=== PATIENT | male | born 1975 ===

== ENCOUNTER 2018-12-03 16:38 | Emergency (ER) | payer SELFPAY ==
--- OUTSIDE RECORDS SUMMARY | 2018-12-03 16:41 | XMS REPORT ---
Author Author [facility] Address Unknown Phone Unavailable Care Team Providers Care Disability Insurance Claim Examiner Name Role Phone Unavailable Unavailable Problems This patient has no known problems. Allergies, Adverse Reactions, Alerts This patient has no known allergies or adverse reactions. Medications This patient has no known medications. Encounters Start Date/Time End Date/Time Encounter Type Admission Type Attending [facility] Care Department Encounter ID 2017-05-03 00:00:00 2017-05-09 00:00:[address] [facility] [id number]
--- NOTE | 2018-12-03 16:46 | NUR ---
No answer at this time from lobby
--- NOTE | 2018-12-03 17:00 | NUR ---
No answer from lobby at this time
--- NOTE | 2018-12-03 17:12 | NUR ---
No answer at this time from lobby
== END 2018-12-03 17:13 | disposition short-term general hospital (02) ==
LOC: ER 16:38
DX: Z04.1 Encounter for examination and observation following transport accident (principal)